=== PATIENT | female | born 1975 | race Caucasian/White ===

== ENCOUNTER 2016-08-11 09:40 | Emergency (ER) | payer OTHER ==
[2016-08-11] MEDS ORDERED: IOPAMIDOL-300 100 ML VIAL IVP ONE (11:12)
[2016-08-11] MEDS ORDERED: KETOROLAC 60 MG/2 ML VIAL IVP STA (12:43)
[2016-08-11] MEDS ORDERED: DEXAMETHASONE 10 MG/ML VIAL IVP STA (12:43)
[2016-08-11] MEDS ORDERED: CHERRY SYRUP 10 ML UDC PO ONE (12:48)
[2016-08-11] MEDS ORDERED: DEXAMETHASONE 10 MG/ML VIAL ONE ×2 (12:48→12:51)
[2016-08-11] MEDS ORDERED: KETOROLAC 30 MG/ML VIAL ONE (12:48)
== END 2016-08-11 13:21 | disposition home or self-care (01) ==
DX: R09.1 Pleurisy (principal); F17.200 Nicotine dependence, unspecified, uncomplicated
CPT/HCPCS: 36415; 71275; 80053; 83690; 84484; 85025; 85379; 93005; 96374; 96375; 99283; 99284; A9270; Q9967

== ENCOUNTER 2020-03-20 14:45 | Emergency (ER) | payer OTHER ==
[2020-03-20] MEDS ORDERED: KETOROLAC 60 MG/2 ML VIAL IM STA (15:01)
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
[2020-03-20 16:13] VITALS: BP 125/80
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
== END 2020-03-20 17:01 | disposition home or self-care (01) ==
LOC: ED 14:45
DX: M19.09 Primary osteoarthritis, other specified site (principal); M51.36 Other intervertebral disc degeneration, lumbar region; V03.00XA Pedestrian on foot injured in collision with car, pick-up truck or van in nontraffic accident, initial encounter; Y92.008 Other place in unspecified non-institutional (private) residence as the place of occurrence of the external cause; F17.200 Nicotine dependence, unspecified, uncomplicated
CPT/HCPCS: 72072; 72100; 96372; 99284